=== PATIENT | male | born 1980 | race Caucasian/White ===

== ENCOUNTER 2018-08-05 13:42 | Emergency (ER) | payer MEDICAID ==
[~2018-08-05] VITALS: Ht 175.3 cm; Wt 72.3 kg
[2018-08-05] MEDS ORDERED: DIPH25CA83 PO (14:05)
[2018-08-05] MEDS ORDERED: ONDA8TAB9 PO (14:05)
[2018-08-05 14:45] VITALS: BP 107/70
== END 2018-08-05 14:49 | disposition home or self-care (01) ==
LOC: ER 13:43
DX: F15.90 Other stimulant use, unspecified, uncomplicated (principal); F11.90 Opioid use, unspecified, uncomplicated; Z02.89 Encounter for other administrative examinations; Z79.899 Other long term (current) drug therapy
CPT/HCPCS: 99283

== ENCOUNTER 2020-08-25 10:51 | Emergency (ER) | payer MEDICAID, OTHER ==
[~2020-08-25] VITALS: Ht 175.3 cm; Wt 81.0 kg
[~2020-08-25 10:51] MED LIST: DIPH25CA83 PO; ONDA8TAB9 PO
[2020-08-25 11:13] VITALS: BP 116/58
== END 2020-08-25 15:22 | disposition home or self-care (01) ==
LOC: ER 10:52
DX: M25.462 Effusion, left knee (principal); M25.562 Pain in left knee; F15.90 Other stimulant use, unspecified, uncomplicated; F11.90 Opioid use, unspecified, uncomplicated; Z79.899 Other long term (current) drug therapy
CPT/HCPCS: 99281